=== PATIENT | female | born 1970 | race Caucasian/White ===

== ENCOUNTER 2017-12-16 17:46 | Emergency (ER) | payer OTHER ==
[2017-12-16] MEDS ORDERED: Ondansetron 4 MG/2 ML SDV IVPUSH ONE (18:55)
[2017-12-16] MEDS ORDERED: Sodium Chloride 0.9% 10 ML Syringe FLUSH PRN (18:56)
[2017-12-16] MEDS ORDERED: Sodium Chloride 0.9% 1,000 ML IV SCH (19:00)
--- NOTE | 2017-12-16 19:02 | EDM.PDOC ---
ED HPI GENERAL MEDICAL PROBLEM - General Chief Complaint: Abdominal Pain Stated Complaint: LOWER RIGHT PAIN Time Seen by Provider: 12/16/17 18:21 Source of Information: Reports: Patient History Limitations: Reports: No Limitations - History of Present Illness INITIAL COMMENTS - FREE TEXT/NARRATIVE: Patient is a 47-year-old female presents ED complaining of right lower quadrant abdominal pain. This started at approximately 1:00 last night. She's had a decreased appetite, nauseated, with increased pain with movement. Especially with walking and lifting his right leg. When asked would she be able to jump on 1 leg she says no. States she's had some increased gas and diarrhea for the past month secondary to diet changes. She does have a history of ovarian cyst, cervical cancer with hysterectomy, and cholecystectomy. She has her appendix. She is concerned pain maybe related to appendicitis. Of note she's had poor follow-up with oncology after the cervical cancer due to . Patient has had some night sweats, mild nausea, diarrhea,. She denies any fever, chest pain , shortness breath, recent weight loss, dysuria, hematuria, or history kidney stones. Right Lower Abdominal Pain Score (Numeric/FACES): 3 - Related Data Allergies Allergy/AdvReac Type Severity Reaction Status Date / Time acetaminophen [From Percocet] Allergy Itching Verified 12/16/17 18:06 Anesthetics - Amide Type Allergy Cardiac Verified 12/16/17 18:06 Arrest iodine Allergy Respiratory Verified 12/16/17 18:06 Depression morphine Allergy Hives Verified 12/16/17 18:06 oxycodone [From Percocet] Allergy Itching Verified 12/16/17 18:06 Sulfa (Sulfonamide Allergy Respiratory Verified 12/16/17 18:06 Antibiotics) Depression Home Meds: Home Meds . 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 Neurological History: Reports: Migraines Endocrine/Metabolic History: Reports: Diabetes, Gestational Oncologic (Cancer) History: Reports: Cervix - Past Surgical History HEENT Surgical History: Reports: Tonsillectomy Other Respiratory Surgeries/Procedures: Sports asthma GI Surgical History: Reports: Cholecystectomy Oncologic Surgical History: Reports: Other (See Below) Other Oncologic Surgeries/Procedures: hysterectomy Social & Family History - Family History Cardiac: Reports: Heart Failure Endocrine/Metabolic: Reports: Diabetes, type II Dermatologic: Reports: Psoriasis Oncologic: Reports: Skin - Tobacco Use Smoking Status *Q: Never Smoker Second Hand Smoke Exposure: Yes - Caffeine Use Caffeine Use: Reports: Coffee - Recreational Drug Use Recreational Drug Use: No ED ROS GENERAL - Review of Systems Review Of Systems: ROS reveals no pertinent complaints other than HPI. ED EXAM, GI/ABD - Physical Exam Exam: See Below Exam Limited By: No Limitations General Appearance: Alert, WD/WN, Mild Distress Ears: Hearing Grossly Normal Nose: Normal Inspection Throat/Mouth: Normal Inspection, Normal Oropharynx, Normal Voice, No Airway Compromise Neck: Normal Inspection, Supple Respiratory/Chest: No Respiratory Distress, Lungs Clear, Normal Breath Sounds, No Accessory Muscle Use Cardiovascular: Normal Peripheral Pulses, Regular Rate, Rhythm GI/Abdominal Exam: Normal Bowel Sounds, Soft, No Organomegaly, No Distention, Other (Positive McBurney's point) Back Exam: Normal Inspection Neurological: Alert, Oriented, CN II-XII Intact, Normal Cognition, No Motor/ Sensory Deficits Psychiatric: Normal Affect, Normal Mood Skin Exam: Warm, Dry, Intact, Normal Color, No Rash Course - Vital Signs Last Recorded V/S: Last Vital Signs Temp 97.2 F 12/16/17 18:10 Pulse 75 12/16/17 18:10 Resp 14 12/16/17 18:10 BP 150/95 H 12/16/17 18:10 Pulse Ox 97 12/16/17 18:10 - Orders/Labs/Meds Orders: Active Orders 24 hr Category Date Time Status Peripheral IV Care [RC] . DIRECTED Care 12/16/17 18:57 Active Abdomen Pelvis wo Cont [CT] Stat Exams 12/16/17 19:27 Taken Peripheral IV Insertion Adult [OM.PC] Routine Oth 12/16/17 18:56 Ordered Labs: Laboratory Tests 12/16/17 12/16/17 12/16/17 Range/Units 19:17 19:17 19:19 WBC 6.13 (3.98-10.04) K/mm3 RBC 5.26 H (3.98-5.22) M/mm3 Hgb 14.7 (11.2-15.7) gm/L Hct 43.3 (34.1-44.9) % MCV 82.3 (79.4-94.8) fl MCH 27.9 (25.6-32.2) pg MCHC 33.9 (32.2-35.5) g/dl RDW Std Deviation 39.8 (36.4-46.3) fL Plt Count 223 (182-369) K/mm3 MPV 10.1 (9.4-12.3) fl Neutrophils % (Manual) 59 (40-60) % Band Neutrophils % 0 (0-10) % Lymphocytes % (Manual) 37 (20-40) % Atypical Lymphs % 0 % Monocytes % (Manual) 2 (2-10) % Eosinophils % (Manual) 2 (0.7-5.8) % Basophils % (Manual) 0 L (0.1-1.2) Platelet Estimate Adequate RBC Morph Comment Normal Sodium 140 (136-145) mEq/L Potassium 3.6 (3.5-5.1) mEq/L Chloride 103 (98-107) mEq/L Carbon Dioxide 29 (21-32) mEq/L Anion Gap 11.6 (5-15) BUN 14 (7-18) mg/dL Creatinine 1.0 (0.55-1.02) mg/dL Est Cr Clr Drug Dosing 70.91 mL/min Estimated GFR (MDRD) 60 (>60) mL/min BUN/Creatinine Ratio 14.0 (14-18) Glucose 98 (74-106) mg/dL Calcium 8.7 (8.5-10.1) mg/dL Total Bilirubin 0.3 (0.2-1.0) mg/dL AST 17 (15-37) U/L ALT 32 (14-59) U/L Alkaline Phosphatase 90 (46-116) U/L C-Reactive Protein 0.4 (<1.0) mg/dL Total Protein 6.9 (6.4-8.2) g/dl Albumin 3.7 (3.4-5.0) g/dl Globulin 3.2 gm/dL Albumin/Globulin Ratio 1.2 (1-2) Lipase 161 (73-393) U/L Urine Color Yellow (Yellow) Urine Appearance Clear (Clear) Urine pH 6.0 (5.0-8.0) Ur Specific Rodney 1.025 (1.005-1.030) Urine Protein Negative (Negative) Urine Glucose (UA) Negative (Negative) Urine Ketones Negative (Negative) Urine Occult Blood Negative (Negative) Urine Nitrite Negative (Negative) Urine Bilirubin Negative (Negative) Urine Urobilinogen 0.2 (0.2-1.0) Ur Leukocyte Esterase Negative (Negative) Urine RBC 0-5 (0-5) /hpf Urine WBC 0-5 (0-5) /hpf Ur Epithelial Cells 0-5 (0-5) /hpf Urine Bacteria Occasional (FEW) /hpf Urine Mucus Few (FEW) /hpf Meds: Medications Discontinued Medications Generic Name Dose Route Start Last Admin Trade Name Freq PRN Reason Stop Dose Admin Diatrizoate Meglum/Diatrizoate Sod 90 ml 12/16/17 20:32 12/16/17 20:44 Gastrografin 37% PO 12/16/17 20:33 90 ml ONETIME ONE Administration Sodium Chloride 1,000 mls @ 250 mls/hr 12/16/17 19:00 12/16/17 19:16 Normal Saline IV 250 mls/hr ASDIRECTED NATALEE Administration Ondansetron HCl 4 mg 12/16/17 18:55 12/16/17 19:17 Zofran IVPUSH 12/16/17 18:56 4 mg ONETIME ONE Administration Sodium Chloride 10 ml 12/16/17 18:56 12/16/17 19:17 Saline Flush FLUSH 10 ml ASDIRECTED PRN Administration Keep Vein Open - Re-Assessments/Exams Free Text/Narrative Re-Assessment/Exam: IV established with normal saline and also Zofran 4 mg IVP. Patient in obvious pain with examination. She refuses any pain medications. Initial labs and studies include CRP, CBC, chem 14, lipase, UA, and CT the abdomen and pelvis with oral and IV contrast. Patient has positive McBurney's point concerning for appendicitis. Pain does radiate down with palpation. 12/16/17 19:26 Patient did not report allergy to IV contrast. Changed to oral contrast only. Labs reviewed: CBC essentially normal. BMP did not reveal any findings concerning this point. CRP 0.4. Lipase WNL. I discussed labs with patient. Told the patient likely chin of appendicitis is low with normal labs. She is electric cell tender along McBurney's point concerning for appendicitis. Pain does continue to radiate downward. May be ovarian in nature. Patient requested CT of the abdomen/pelvis. Ultrasound maybe required if CT does not reveal any definitive diagnosis this will be ordered on outpatient status. VSS are stable. 12/16/17 21:10 CT abdomen/pelvis Impression: No acute findings are present. Left adnexal cyst. Patient continues to have pain. Refuses any pain medications. Will discharge patient home with instructions and outpatient order for Non OB Limited Ultrasound to rule out ovarian etiology. Departure - Departure Time of Disposition: 21:16 Disposition: Home, Self-Care 01 Condition: Good Clinical Impression: Abdominal pain of unknown etiology, RLQ abdominal pain - Discharge Information Instructions: Abdominal Pain, Adult, [id number] Referrals: PCP,None [Primary Care Provider] - Forms: ED Department Discharge Additional Instructions: Outpatient order for Pelvis Non OB ultrasound has been ordered on outpatient basis. They will call you with appt time. Utilize aleve or ibuprofen for pain management. Push the fluids. Eat balanced diet. Establish care with a PCP at [facility] here in [place] for reevaluation. Return to the E.D. if you develop any new or worsening symptoms. - My Orders Last 24 Hours: My Active Orders 12/16/17 18:56 Peripheral IV Insertion Adult [OM.PC] Routine 12/16/17 18:57 Peripheral IV Care [RC] . DIRECTED 12/16/17 19:27 Abdomen Pelvis wo Cont [CT] Stat - Assessment/Plan Last 24 Hours: My Active Orders 12/16/17 18:56 Peripheral IV Insertion Adult [OM.PC] Routine 12/16/17 18:57 Peripheral IV Care [RC] . DIRECTED 12/16/17 19:27 Abdomen Pelvis wo Cont [CT] Stat
[2017-12-16] MEDS ORDERED: Diatrizoate Meglumine/Diatrizoate Sodium 37% 120 ML Bottle PO ONE (20:32)
--- NOTE | 2017-12-17 06:57 | CT ---
CT abdomen and pelvis Technique: Multiple axial sections were obtained from above the dome of the diaphragm inferiorly through the pubic symphysis. Intravenous contrast was not utilized due to history of iodine allergy, oral contrast has been given. Comparison: No previous study. Findings: Visualized lung bases show nothing acute. Noncontrast appearance of the liver and spleen appears within normal limits. Adrenal glands show no nodule. Pancreas is within normal limits. Surgical clips are seen from prior cholecystectomy. Kidneys show no abnormal calcifications or hydronephrosis. Aorta shows no aneurysmal dilatation. No retroperitoneal adenopathy or mesenteric abnormalities are seen. Appendix is seen which is normal. No pelvic mass or adenopathy is seen. Small cyst is noted within the left ovary which is felt to be incidental. No free fluid or inflammatory change is seen. Bone window settings were reviewed which appear within normal limits for the patient's age. Impression: 1. Nothing acute is identified on CT study of the abdomen and pelvis. Diagnostic code #2 I agree with preliminary report issued by [employer] ([employer] preliminary report dictated on 12/16/17, 10:03 PM Central Time)
== END 2017-12-16 21:33 | disposition home or self-care (01) ==
LOC: JD.ED 17:46
DX: R10.31 Right lower quadrant pain (principal); I10 Essential (primary) hypertension; Z88.6 Allergy status to analgesic agent; Z88.5 Allergy status to narcotic agent; Z88.2 Allergy status to sulfonamides
CPT/HCPCS: 36415; 74176; 80053; 81001; 83690; 85025; 86140; 96361; 96374; 99284; J2405; J7040; J7050; Q9963

== ENCOUNTER 2019-08-28 20:15 | Emergency (ER) | payer OTHER ==
[2019-08-28] MEDS ORDERED: Bacitracin Oint 15 GM Tube TOP ONE (20:36)
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
== END 2019-08-28 20:57 | disposition home or self-care (01) ==
LOC: JD.ED 20:15
DX: T23.292A Burn of second degree of multiple sites of left wrist and hand, initial encounter (principal); I10 Essential (primary) hypertension; J45.909 Unspecified asthma, uncomplicated; Z88.8 Allergy status to other drugs, medicaments and biological substances; Z88.5 Allergy status to narcotic agent; Z88.2 Allergy status to sulfonamides; Z91.048 Other nonmedicinal substance allergy status; X15.0XXA Contact with hot stove (kitchen), initial encounter
CPT/HCPCS: 16020; 99282; 99283-25

== ENCOUNTER 2021-04-05 20:26 | Emergency (ER) | payer BC, OTHER ==
[2021-04-05] MEDS ORDERED: MVI, Adult with Vitamin K 10 ML in Dextrose 5%-Lactated Ringers 1,000 ML IV SCH ×2 (21:00)
--- NOTE | 2021-04-05 21:05 | EDM.PDOC ---
ED HPI GENERAL MEDICAL PROBLEM - General Chief Complaint: Behavioral/Psych Stated Complaint: POSS STROKE Time Seen by Provider: 04/05/21 20:36 Source of Information: Reports: Patient, Family ( + child) History Limitations: Reports: Altered Mental Status - History of Present Illness INITIAL COMMENTS - FREE TEXT/NARRATIVE: Mrs. Burnette is a very pleasant 50-year-old woman who is now brought to the ED by her , who tells me that the patient has been very anxious and not resting for more than 1 week. He did not elaborate beyond that, however, the patient's triage nurse noted that the patient had told her that she is being "controlled by the dark sumeet" numerous times. The patient did not say anything about that to me. For the most part, the patient was able to answer my questions, except that she insisted that she smokes 6 packs of cigarettes per day, which her corrected, stating that she has never smoked. The patient's tells me that the patient has no psychiatric history, treatment with psychiatric medications, or history of psychiatric hospitalization. No prior medical evaluation for this complaint. The patient's reports that the patient has been on a keto diet since mid-October, and that he estimates she has lost 60 to 80 pounds since then. He is concerned that the patient may be suffering from vitamin and mineral d eficiencies, causing her current symptoms. Here in the ED, the patient's initial BP is found to be modestly elevated 155/102, otherwise, she is hemodynamically stable, afebrile, saturating 97% on room air. She does not appear to be in acute distress. Other than her altered mental status, the patient's denies that the patient has had a recent fever, chills, sore throat, ear pain, nasal or sinus congestion, cough, dyspnea, chest pain, palpitations, nausea, vomiting, constipation, diarrhea, abdominal pain, urinary symptoms, recent bloody bowel movements or black bowel movements, recent joint aches, headaches, or rashes. The patient does not have a PCP. - Related Data Allergies Allergy/AdvReac Type Severity Reaction Status Date / Time acetaminophen [From Percocet] Allergy Severe Itching Verified 04/05/21 20:36 Anesthetics - Amide Type - Allergy Severe Cardiac Verified 04/05/21 20:36 Select A Arrest [Anesthetics - Amide Type] iodine Allergy Severe Respiratory Verified 04/05/21 20:36 Depression morphine Allergy Severe Hives Verified 04/05/21 20:36 oxycodone [From Percocet] Allergy Severe Itching Verified 04/05/21 20:36 Sulfa (Sulfonamide Allergy Severe Respiratory Verified 04/05/21 20:36 Antibiotics) Depression Home Meds: Home Meds Magnesium 0 mg PO DAILY 04/05/21 [History] Past Medical History HEENT History: Reports: Allergic Rhinitis Cardiovascular History: Reports: Hypertension (untreated) Gastrointestinal History: Reports: Hemorrhoids I&C TECH History: Reports: Other (See Below) (Preeclampsia) Endocrine/Metabolic History: Reports: Diabetes, Gestational, Obesity/BMI 30+ Oncologic (Cancer) History: Reports: Cervix (s/p hysterectomy) - Past Surgical History HEENT Surgical History: Reports: Tonsillectomy Other Respiratory Surgeries/Procedures: Sports asthma GI Surgical History: Reports: Cholecystectomy (2016) Female Surgical History: Reports: Hysterectomy (complete) Social & Family History - Tobacco Use Tobacco Use Status *Q: Never Tobacco User - Caffeine Use Caffeine Use: Reports: None - Alcohol Use Alcohol Use History: No - Recreational Drug Use Recreational Drug Use: No - Living Situation & Occupation Living situation: Reports: , with Spouse, with Family (1 child) Occupation: Unemployed ED ROS GENERAL - Review of Systems Review Of Systems: Comprehensive ROS is negative, except as noted in HPI. - Physical Exam Exam: See Below Exam Limited By: Altered Mental Status (did not take deep breaths when asked) General Appearance: Alert, WD/WN, No Apparent Distress Eye Exam: Bilateral Eye: EOMI, Normal Inspection, PERRL Ears: Normal External Exam, Normal Canal, Hearing Grossly Normal, Normal TMs Nose: Normal Inspection, Normal Mucosa, No Blood Throat/Mouth: Normal Inspection, Normal Lips, Normal Teeth, Normal Gums, Normal Oropharynx, Normal Voice, No Airway Compromise Head Exam: Atraumatic, Normocephalic Neck: Normal Inspection, Supple, Non-Tender, Full Range of Motion. No: Lymphadenopathy (L), Lymphadenopathy (R) Respiratory/Chest: No Respiratory Distress, Lungs Clear, Normal Breath Sounds, No Accessory Muscle Use Cardiovascular: Normal Peripheral Pulses, Regular Rate, Rhythm, No Gallop, No JVD, No Murmur, No Rub GI/Abdominal: Normal Bowel Sounds, Soft, Non-Tender, No Organomegaly, No Distention, No Abnormal Bruit, No Mass Neuro Exam (Abbreviated): Alert, CN II-XII Intact, No Motor/Sensory Deficits Back Exam: Normal Inspection, Full Range of Motion, NT Extremities: Normal Inspection, Normal Range of Motion, Normal Capillary Refill Psychiatric: Flat Affect Skin Exam: Warm, Dry, Intact, Normal Color, No Rash #1 Interpretation EKG Date: 04/05/21 Time: 21:40 Rhythm: NSR Rate (Beats/Min): 74 [place]: Normal P-Wave: Present QRS: Normal ST-T: Normal QT: Normal Comparison: NA - No Prior EKG Course - Vital Signs Last Recorded V/S: Last Vital Signs Temp 36.0 C L 04/05/21 20:32 Pulse 75 04/05/21 20:32 Resp 16 04/05/21 20:32 BP 155/102 H 04/05/21 20:32 Pulse Ox 97 04/05/21 20:32 - Orders/Labs/Meds Orders: Active Orders 24 hr Category Date Time Status Head wo Cont [CT] Stat Exams 04/05/21 20:54 Taken Labs: Laboratory Tests 04/05/21 04/05/21 04/05/21 Range/Units 21:05 21:12 21:16 WBC 6.13 (3.98-10.04) K/mm3 RBC 5.40 H (3.98-5.22) M/mm3 Hgb 15.2 (11.2-15.7) gm/dl Hct 45.7 H (34.1-44.9) % MCV 84.6 (79.4-94.8) fl MCH 28.1 (25.6-32.2) pg MCHC 33.3 (32.2-35.5) g/dl RDW Std Deviation 45.1 (36.4-46.3) fL Plt Count 219 (182-369) K/mm3 MPV 10.7 (9.4-12.3) fl Neutrophils % (Manual) 71 H (40-60) % Band Neutrophils % 0 (0-10) % Lymphocytes % (Manual) 20 (20-40) % Atypical Lymphs % 0 % Monocytes % (Manual) 7 (2-10) % Eosinophils % (Manual) 1 (0.7-5.8) % Basophils % (Manual) 1 (0.1-1.2) Platelet Estimate Adequate RBC Morph Comment Normal PT (9.7-12.0) SECONDS INR APTT (21.7-31.4) SECONDS D-Dimer, Quantitative (0.19-0.50) mg/L Sodium (136-145) mEq/L Potassium (3.5-5.1) mEq/L Chloride (98-107) mEq/L Carbon Dioxide (21-32) mEq/L Anion Gap (5-15) BUN (7-18) mg/dL Creatinine (0.55-1.02) mg/dL Est Cr Clr Drug Dosing mL/min Estimated GFR (MDRD) (>60) mL/min BUN/Creatinine Ratio (14-18) Glucose (70-99) mg/dL POC Glucose 108 H (70-99) mg/dL Calcium (8.5-10.1) mg/dL Magnesium (1.8-2.4) mg/dL Total Bilirubin (0.2-1.0) mg/dL AST (15-37) U/L ALT (14-59) U/L Alkaline Phosphatase (46-116) U/L Troponin I (0.00-0.056) ng/mL C-Reactive Protein (<1.0) mg/dL Total Protein (6.4-8.2) g/dl Albumin (3.4-5.0) g/dl Globulin gm/dL Albumin/Globulin Ratio (1-2) TSH 3rd Generation (0.358-3.74) uIU/mL Urine Color (Yellow) Urine Appearance (Clear) Urine pH (5.0-8.0) Ur Specific [place] (1.005-1.030) Urine Protein (Negative) Urine Glucose (UA) (Negative) Urine Ketones (Negative) Urine Occult Blood (Negative) Urine Nitrite (Negative) Urine Bilirubin (Negative) Urine Urobilinogen (0.2-1.0) Ur Leukocyte Esterase (Negative) Urine RBC (0-5) /hpf Urine WBC (0-5) /hpf Ur Squamous Epith Cells (0-5) /hpf Urine Bacteria (FEW) /hpf Urine Mucus (FEW) /hpf Salicylates (2.8-20) mg/dL Urine Opiates Screen (GWZHBK=764) Ur Buprenorphine Scrn (CUTOFF=10) Ur Oxycodone Screen (OWB9IV=053) Urine Methadone Screen (SVGMFZ=138) Ur Propoxyphene Screen (SIIXNG=454) Acetaminophen (10-30) ug/mL Ur Barbiturates Screen (JRVZVW=019) Ur Tricyclics Screen (PQIRLR=317) Ur Phencyclidine Scrn (CUTOFF=25) Ur Amphetamine Screen (WBEQGE=527) U Methamphetamines Scrn (MYFLSH=919) U Benzodiazepines Scrn (FCDNUT=876) U Cocaine Metab Screen (HOHDXV=315) U Marijuana (THC) Screen (CUTOFF=50) Ethyl Alcohol (0.00) gm% SARS-CoV-2 RNA (CHARLI) Negative (NEGATIVE) 04/05/21 04/05/21 04/05/21 Range/Units 21:16 21:16 21:16 WBC (3.98-10.04) K/mm3 RBC (3.98-5.22) M/mm3 Hgb (11.2-15.7) gm/dl Hct (34.1-44.9) % MCV (79.4-94.8) fl MCH (25.6-32.2) pg MCHC (32.2-35.5) g/dl RDW Std Deviation (36.4-46.3) fL Plt Count (182-369) K/mm3 MPV (9.4-12.3) fl Neutrophils % (Manual) (40-60) % Band Neutrophils % (0-10) % Lymphocytes % (Manual) (20-40) % Atypical Lymphs % % Monocytes % (Manual) (2-10) % Eosinophils % (Manual) (0.7-5.8) % Basophils % (Manual) (0.1-1.2) Platelet Estimate RBC Morph Comment PT 10.3 (9.7-12.0) SECONDS INR 0.96 APTT 22.5 (21.7-31.4) SECONDS D-Dimer, Quantitative < 0.19 L (0.19-0.50) mg/L Sodium 145 (136-145) mEq/L Potassium 3.8 (3.5-5.1) mEq/L Chloride 107 (98-107) mEq/L Carbon Dioxide 27 (21-32) mEq/L Anion Gap 14.8 (5-15) BUN 9 (7-18) mg/dL Creatinine 0.8 (0.55-1.02) mg/dL Est Cr Clr Drug Dosing 85.81 mL/min Estimated GFR (MDRD) > 60 (>60) mL/min BUN/Creatinine Ratio 11.3 L (14-18) Glucose 121 H (70-99) mg/dL POC Glucose (70-99) mg/dL Calcium 9.5 (8.5-10.1) mg/dL Magnesium 2.0 (1.8-2.4) mg/dL Total Bilirubin 0.5 (0.2-1.0) mg/dL AST 15 (15-37) U/L ALT 21 (14-59) U/L Alkaline Phosphatase 65 (46-116) U/L Troponin I < 0.017 (0.00-0.056) ng/mL C-Reactive Protein < 0.2 (<1.0) mg/dL Total Protein 7.3 (6.4-8.2) g/dl Albumin 4.3 (3.4-5.0) g/dl Globulin 3.0 gm/dL Albumin/Globulin Ratio 1.4 (1-2) TSH 3rd Generation 2.127 (0.358-3.74) uIU/mL Urine Color (Yellow) Urine Appearance (Clear) Urine pH (5.0-8.0) Ur Specific [place] (1.005-1.030) Urine Protein (Negative) Urine Glucose (UA) (Negative) Urine Ketones (Negative) Urine Occult Blood (Negative) Urine Nitrite (Negative) Urine Bilirubin (Negative) Urine Urobilinogen (0.2-1.0) Ur Leukocyte Esterase (Negative) Urine RBC (0-5) /hpf Urine WBC (0-5) /hpf Ur Squamous Epith Cells (0-5) /hpf Urine Bacteria (FEW) /hpf Urine Mucus (FEW) /hpf Salicylates 0.6 L (2.8-20) mg/dL Urine Opiates Screen (PGRGDL=107) Ur Buprenorphine Scrn (CUTOFF=10) Ur Oxycodone Screen (ZJU6LE=837) Urine Methadone Screen (LVMUXA=714) Ur Propoxyphene Screen (MRLXEU=152) Acetaminophen 0 L (10-30) ug/mL Ur Barbiturates Screen (CBAYOL=899) Ur Tricyclics Screen (YDLUKC=286) Ur Phencyclidine Scrn (CUTOFF=25) Ur Amphetamine Screen (VRNRMP=928) U Methamphetamines Scrn (RWVEUE=168) U Benzodiazepines Scrn (WPJRXV=210) U Cocaine Metab Screen (UFFUZJ=804) U Marijuana (THC) Screen (CUTOFF=50) Ethyl Alcohol 0.00 (0.00) gm% SARS-CoV-2 RNA (CHARLI) (NEGATIVE) 04/05/21 04/05/21 Range/Units 22:45 22:45 WBC (3.98-10.04) K/mm3 RBC (3.98-5.22) M/mm3 Hgb (11.2-15.7) gm/dl Hct (34.1-44.9) % MCV (79.4-94.8) fl MCH (25.6-32.2) pg MCHC (32.2-35.5) g/dl RDW Std Deviation (36.4-46.3) fL Plt Count (182-369) K/mm3 MPV (9.4-12.3) fl Neutrophils % (Manual) (40-60) % Band Neutrophils % (0-10) % Lymphocytes % (Manual) (20-40) % Atypical Lymphs % % Monocytes % (Manual) (2-10) % Eosinophils % (Manual) (0.7-5.8) % Basophils % (Manual) (0.1-1.2) Platelet Estimate RBC Morph Comment PT (9.7-12.0) SECONDS INR APTT (21.7-31.4) SECONDS D-Dimer, Quantitative (0.19-0.50) mg/L Sodium (136-145) mEq/L Potassium (3.5-5.1) mEq/L Chloride (98-107) mEq/L Carbon Dioxide (21-32) mEq/L Anion Gap (5-15) BUN (7-18) mg/dL Creatinine (0.55-1.02) mg/dL Est Cr Clr Drug Dosing mL/min Estimated GFR (MDRD) (>60) mL/min BUN/Creatinine Ratio (14-18) Glucose (70-99) mg/dL POC Glucose (70-99) mg/dL Calcium (8.5-10.1) mg/dL Magnesium (1.8-2.4) mg/dL Total Bilirubin (0.2-1.0) mg/dL AST (15-37) U/L ALT (14-59) U/L Alkaline Phosphatase (46-116) U/L Troponin I (0.00-0.056) ng/mL C-Reactive Protein (<1.0) mg/dL Total Protein (6.4-8.2) g/dl Albumin (3.4-5.0) g/dl Globulin gm/dL Albumin/Globulin Ratio (1-2) TSH 3rd Generation (0.358-3.74) uIU/mL Urine Color Yellow (Yellow) Urine Appearance Clear (Clear) Urine pH 6.0 (5.0-8.0) Ur Specific [place] 1.020 (1.005-1.030) Urine Protein Negative (Negative) Urine Glucose (UA) Negative (Negative) Urine Ketones 2+ H (Negative) Urine Occult Blood Negative (Negative) Urine Nitrite Negative (Negative) Urine Bilirubin Negative (Negative) Urine Urobilinogen 0.2 (0.2-1.0) Ur Leukocyte Esterase Negative (Negative) Urine RBC 0-5 (0-5) /hpf Urine WBC 0-5 (0-5) /hpf Ur Squamous Epith Cells 0-5 (0-5) /hpf Urine Bacteria Rare (FEW) /hpf Urine Mucus Moderate H (FEW) /hpf Salicylates (2.8-20) mg/dL Urine Opiates Screen Negative (JDOSBS=144) Ur Buprenorphine Scrn Negative (CUTOFF=10) Ur Oxycodone Screen Negative (CKM0QI=137) Urine Methadone Screen Negative (YUHCXR=578) Ur Propoxyphene Screen Negative (EBKWOD=378) Acetaminophen (10-30) ug/mL Ur Barbiturates Screen Negative (YZIEBQ=194) Ur Tricyclics Screen Negative (JWEZZL=942) Ur Phencyclidine Scrn Negative (CUTOFF=25) Ur Amphetamine Screen Negative (PZDKRT=302) U Methamphetamines Scrn Negative (MSAZQL=911) U Benzodiazepines Scrn Negative (HADQPN=511) U Cocaine Metab Screen Negative (MVSNQG=775) U Marijuana (THC) Screen Negative (CUTOFF=50) Ethyl Alcohol (0.00) gm% SARS-CoV-2 RNA (CHARLI) (NEGATIVE) Meds: Medications Discontinued Medications Generic Name Dose Route Start Last Admin Trade Name Freq PRN Reason Stop Dose Admin Multivitamins/Minerals 10 ml/ 1,010 mls @ 150 mls/hr 04/05/21 21:00 04/05/21 21:11 Dextrose/Lactated Ringer's IV 150 mls/hr ASDIRECTED [facility] Administration - Re-Assessments/Exams Free Text/Narrative Re-Assessment/Exam: 04/05/21 20:59 As above, the patient has had an altered mental status with possible visual hallucinations for more than a week. While she did not mention anything about it to me, she repeatedly spoke of being controlled by a dark sumeet to the triage nurse. No prior similar symptoms. The patient's reports that the patient has been on a keto diet since mid October, having lost about 60 to 80 pounds since then, and is concerned that the patient's symptoms may be due to a vitamin and mineral deficiency. The patient was able to answer most questions correctly, although she insisted that she smokes 6 packs of cigarettes per day, while the patient's stated that the patient does not currently smoke, and never has. She did not take deep breaths when asked, but did cooperate with her neurologic exam, which was normal. The cause of her altered mental status is not immediately clear, although it is possible that it may be related to her diet in some way. I have ordered a work-up that includes an Accu-Chek, numerous blood tests, a urinalysis by quick catheter, a urine drug screen, a swab for the SARS-CoV-2 virus, a CT of the head without contrast, and an ECG. In the meantime, the patient will be treated with D5 LR with thiamine and an MVI at 150 mL/h. 04/05/21 21:10 The patient's Accu-Chek is 108. 04/05/21 22:15 CT of the head without contrast is read by Bella as "No acute intracranial process." 04/05/21 22:44 The patient's CBC is remarkable for a Hct slightly elevated at 45.7, with her Hgb being normal at 15.2, and the remainder of her CBC being unremarkable. Her CMP is remarkable for an anion gap slightly elevated at 18.6, with a bicarbonate normal at 26, and a blood glucose mild elevated at 121, with the remainder of her CMP being unremarkable. Her magnesium level is within normal limits at 2.0. TSH is within normal limits at 2.127. Her CRP is undetectably low. Her troponin is undetectably low. Her D-dimer is undetectably low. Her coags are within normal limits. Her acetaminophen level is 0. Her salicylate level is within normal limits at 0.6. Her EtOH level is 0.00. Her swab for the SARS-CoV-2 virus is negative. Her urinalysis and urine drug screen results are still pending. 04/05/21 23:30 The patient's urinalysis is unremarkable. Her urine drug screen is negative. 04/05/21 23:41 Test results discussed with the patient and her . As above, today's work-up is unremarkable, and does not explain the cause of her symptoms. I am concerned that this may be psychiatric, and I therefore recommended that I discussed the case with a Psychiatrist. The patient's agreed, but then asked if they can go. He stated that they are tired. He would prefer to follow-up as an outpatient. Departure - Departure Time of Disposition: 23:42 Disposition: Home, Self-Care 01 Condition: Good Clinical Impression: Altered mental status - Discharge Information *PRESCRIPTION DRUG MONITORING PROGRAM REVIEWED*: Not Applicable *COPY OF PRESCRIPTION DRUG MONITORING REPORT IN PATIENT OLENA: Not Applicable Instructions: Confusion Referrals: PCP,None [Primary Care Provider] - Jing Zambrano NP [Nurse Practitioner] - Forms: ED Department Discharge Additional Instructions: Mrs. Burnette was seen in the emergency room for more than 1 week of an altered mental status. Work-up in the ER included numerous blood tests, a urinalysis, a urine drug screen, a swab for the SARS-CoV-2 virus, a CT scan of her head, and an ECG. Her entire work-up was unremarkable, and does not explain the cause of her symptoms. Based on her history, physical exam, and ER tests, her altered mental status is most likely psychiatric in etiology. Discussion with a Psychiatrist in [place] was recommended, but declined. We recommend that you have Mrs. Torres follow-up with Jing Zambrano NP, or one of the other providers in the clinic at the next available appointment. If any other problems, please do not hesitate to return Mrs. Burnette to the ER. Sepsis Event Note (ED) - Evaluation Sepsis Screening Result: No Definite Risk - Focused Exam Vital Signs: Vital Signs Temp Pulse Resp BP Pulse Ox 04/05/21 20:32 36.0 C L 75 16 155/102 H 97 - My Orders Last 24 Hours: My Active Orders 04/05/21 20:54 Head wo Cont [CT] Stat - Assessment/Plan Last 24 Hours: My Active Orders 04/05/21 20:54 Head wo Cont [CT] Stat
[2021-04-05 22:07] LABS: ACETAMINOPHEN 0 ug/mL (10-30)
--- NOTE | 2021-04-06 06:34 | CT ---
Head CT Technique: Multiple axial sections through the brain were obtained. Intravenous contrast was not utilized. Reconstructed coronal and sagittal images were obtained. Comparison: No prior intracranial imaging is available. Findings: Ventricles along with basal cisterns and sulci over the convexities are within normal limits for the patient's age. No abnormal parenchymal densities are seen. No evidence of intracranial hemorrhage is seen. No midline shift or mass-effect is seen. Bone window settings were reviewed. No acute calvarial abnormality is seen. Visualized mastoid sinuses and paranasal sinuses show nothing acute. Impression: 1. Nothing acute is seen on noncontrast head CT study. Diagnostic code #1 I agree with preliminary report from [facility], finalized on 04/05/21, 10:50 PM CDT, code 1
== END 2021-04-05 23:55 | disposition home or self-care (01) ==
LOC: JD.ED 20:26
DX: R41.82 Altered mental status, unspecified (principal); I10 Essential (primary) hypertension; E66.9 Obesity, unspecified; Z20.822 Contact with and (suspected) exposure to COVID-19; Z68.30 Body mass index [BMI] 30.0-30.9, adult; Z88.4 Allergy status to anesthetic agent; Z88.2 Allergy status to sulfonamides; Z88.5 Allergy status to narcotic agent; Z88.6 Allergy status to analgesic agent; Z91.041 Radiographic dye allergy status
CPT/HCPCS: 36415; 70450; 80053; 80143; 80179; 80306; 80307; 81001; 82947; 83735; 84443; 84484; 85007; 85027; 85379; 85610; 85730; 86140; 87635; 93005; 96365; 96366; 99285; J7121; 93010; 99284; U0002

== ENCOUNTER 2022-03-05 11:21 | Emergency (ER) | payer BC | END 2022-03-05 13:16 | disposition home or self-care (01) | LOC: JD.ED 11:21 | DX: Z02.83 Encounter for blood-alcohol and blood-drug test (principal); I10 Essential (primary) hypertension; E66.9 Obesity, unspecified; Z68.30 Body mass index [BMI] 30.0-30.9, adult; Z88.4 Allergy status to anesthetic agent; Z88.5 Allergy status to narcotic agent; Z88.2 Allergy status to sulfonamides; Z91.041 Radiographic dye allergy status; Z88.8 Allergy status to other drugs, medicaments and biological substances | CPT/HCPCS: 80306; 99283; 99284 ==

== ENCOUNTER 2022-03-30 11:28 | Emergency (ER) | payer BC | END 2022-03-30 17:10 | disposition home or self-care (01) | LOC: JD.ED 11:28 | DX: R45.4 Irritability and anger (principal); I10 Essential (primary) hypertension; Z20.822 Contact with and (suspected) exposure to COVID-19; Z88.2 Allergy status to sulfonamides; Z88.5 Allergy status to narcotic agent; Z88.8 Allergy status to other drugs, medicaments and biological substances | CPT/HCPCS: 36415; 80053; 80143; 80179; 80307; 84443; 85025; 99282; 99284; U0002 ==